=== PATIENT | male | born 2000 | race Caucasian/White ===

== ENCOUNTER 2021-05-23 00:19 | Emergency (ER) | payer OTHER ==
[~2021-05-23] VITALS: Ht 182.9 cm; Wt 108.9 kg
[~2021-05-23 00:19] MED LIST: HYCET 7.5 MG-3473 ML PO; IBUPROFEN 600600 M1 PO; LORATIDINE 10 M10 M1; MULTIVITAMINS1 EAC7
[2021-05-23] MEDS ORDERED: PERCOCET 5-3251 EACH PO (02:19)
[2021-05-23 02:36] VITALS: BP 126/71
== END 2021-05-23 02:55 | disposition home or self-care (01) ==
LOC: ER 00:19
DX: S82.55XA Nondisplaced fracture of medial malleolus of left tibia, initial encounter for closed fracture (principal); Z90.89 Acquired absence of other organs; Z98.890 Other specified postprocedural states; Z79.899 Other long term (current) drug therapy; F12.90 Cannabis use, unspecified, uncomplicated; W22.8XXA Striking against or struck by other objects, initial encounter; Y93.89 Activity, other specified; Y92.89 Other specified places as the place of occurrence of the external cause; Y99.8 Other external cause status